=== PATIENT | male | born 1965 | race Caucasian/White ===

== ENCOUNTER → 2019-11-05 07:16 | Outpatient (CLI) | payer OTHER, SELFPAY ==
[2019-11-05 08:06] LABS: Add Manual Diff / Slide Review NO; Basophils Absolute Auto 0 /uL (0-100); Basophils Percent Auto 0.6 % (0-2); Eosinophils Absolute Auto 200 /uL (0-450); Eosinophils Percent Auto 2.1 % (2-4); Hematocrit 50.8 % (41-53); Hemoglobin 17.2 g/dL (13.5-17.5); Lymphocytes Absolute Auto 2200 /uL (1100-4500); Lymphocytes Percent Auto 30.7 % (25-40); Mean Corpuscular HGB Conc 33.9 % (30-36); Mean Corpuscular Hemoglobin 33.1 PG (26-34); Mean Corpuscular Volume 97.6 fL (80-100); Monocytes Absolute Auto 400 /uL (0-900); Neutrophils Absolute Auto 4300 /uL (1500-7000); Neutrophils Percent Auto 60.6 % (50-75); Platelet Count 179 X10^3/uL (150-400); Red Cell Distribution Width 13.4 % (11.6-14.8); White Blood Cell Count 7.1 X10^3/uL (4.5-11.0)
[2019-11-05 08:17] LABS: Alanine Aminotransferase 89 IU/L (<50); Albumin 4.4 g/dL (3.5-5.0); Albumin Globulin Ratio 1.2 (1.0-2.8); Alkaline Phosphatase 67 U/L (38-126); Aspartate Aminotransferase 56 IU/L (17-59); BUN Creatinine Ratio 15.3 (6-22); Bilirubin Total 0.8 mg/dL (0.2-1.3); Blood Urea Nitrogen 15 mg/dL (9-20); Calcium 9.4 mg/dL (8.4-10.2); Carbon Dioxide 30 mmol/L (22-32); Chloride 104 mmol/L (98-107); Cholesterol 199 mg/dL (140-199); Estimated Glomerular Filt Rate > 60.0 mL/min (>60); Globulin 3.8 g/dL (1.7-4.1); Glucose 114 mg/dL (70-100); HDL Cholesterol 41 mg/dL (40-60); HEMOLYSIS < 15 (0-50); Hemoglobin A1C% w Est Avg Glu 6.1 % (4.0-6.0); LDL Cholesterol Calculated 119 mg/dL (<100); Potassium 4.6 mmol/L (3.4-5.1); Sodium 140 mmol/L (137-145); Total Protein 8.2 g/dL (6.3-8.2); Triglycerides 197 mg/dL (35-150)
[2019-11-05 09:38] LABS: TSH w/ Reflex to FT4 2.47 uIU/mL (0.47-4.68)
== END ==
PROVIDERS: Family Provider Family Medicine; PCP Registered Nurse Diabetes Educator; Referring Provider Registered Nurse Diabetes Educator; Visit Provider Registered Nurse Diabetes Educator
DX: Z00.00 Encounter for general adult medical examination without abnormal findings (principal); R73.9 Hyperglycemia, unspecified; R74.8 Abnormal levels of other serum enzymes
CPT/HCPCS: 36415; 80053; 80061; 83036; 84443; 85025

== ENCOUNTER → 2019-11-28 14:02 | Outpatient (CLI) | payer OTHER, SELFPAY ==
--- NOTE | 2019-11-28 | DI.MRI.S_ITS ---
PROCEDURE: MR HEAD/BRAIN WO/W CON INDICATIONS: eliezer media. Decreased hearing in right ear TECHNIQUE: Noncontrast axial T1 spin echo, axial T2 fast spin echo, sagittal and axial FLAIR, coronal T2 fast spin echo, axial gradient echo, axial diffusion and ADC through the brain. In this patient, thin section T2 weighted axial SPACE images were performed. After the administration of contrast, axial and coronal 3D VIBE or T1 spin echo with fat saturation through the brain. COMPARISON: None. FINDINGS: Image quality: Excellent. CSF Spaces: Basal cisterns are patent. No extra-axial fluid collections. Ventricles are normal in size and shape. Brain: No midline shift. No intracranial bleeds or masses. No abnormal intracranial enhancement. The brainstem appears normal. Diffusion-weighted images demonstrate no acute ischemic insults. No chronic ischemic insults. Normal intravascular flow voids are present. In this patient with this given history, scrutiny is given to the cerebellopontine angle cisterns and the internal auditory canals. To limits of this study that is performed without contrast, no masses can be seen within these regions. Skull and face: Calvarial marrow is normal in signal. Orbits appear normal. Sinuses: No significant paranasal sinus abnormality is seen. Scrutiny is given to the mastoids. No abnormal mastoid air cell fluid can be seen on either side. IMPRESSION: No significant MRI abnormality is seen. If it would be helpful for clinical management decision making in this patient with a given history of otitis media and reduced hearing in the right ear, please consider a dedicated temporal bone CT for further evaluation. No masses or abnormal enhancement can be seen. Dictated by: Torito Camargo M.D. on 11/28/2019 at 15:15 Approved by: Torito Camargo M.D. on 11/28/2019 at 15:17
--- NOTE | 2019-11-28 14:04 | DI.US.S_ITS ---
PROCEDURE: US ABDOMEN LIMITED INDICATIONS: RUQ US to eval LFT elevation TECHNIQUE: Real-time focused scanning was performed of the abdomen, with image documentation. COMPARISON: [facility], CT, KIDNEY/ URETER/BLADDER, 06/05/2016, 21:45. FINDINGS: The liver demonstrates normal size. The liver demonstrates generalized moderately increased echogenicity. This decreases ultrasound sensitivity for detection of hepatic masses. A small amount of sludge can be seen within the gallbladder. No findings of gallstones can be seen. The gallbladder wall is not thickened, measuring 3 mm or less. No specific pericholecystic fluid is seen. The sonographic Guzman sign is negative. There is no biliary dilatation, the common bile duct measures 2 mm. The pancreas is not well seen. At the superior pole of the right kidney, there is a prominent simple appearing cyst seen that measures 6.3 x 4.7 x 6.7 cm. IMPRESSION: The liver demonstrates increased echogenicity. This finding is nonspecific, yet it is most commonly attributed to fatty infiltration. A small amount of sludge is seen within the gallbladder, without additional gallbladder abnormality. No biliary dilatation. 6.7 cm simple appearing right renal cyst incidentally noted. Dictated by: Torito Camargo M.D. on 11/28/2019 at 14:52 Approved by: Torito Camargo M.D. on 11/28/2019 at 14:53
== END ==
PROVIDERS: Family Provider Family Medicine; PCP Registered Nurse Diabetes Educator; Referring Provider Otolaryngology Facial Plastic Surgery; Visit Provider Otolaryngology Facial Plastic Surgery
DX: H66.91 Otitis media, unspecified, right ear (principal); H91.91 Unspecified hearing loss, right ear; R42 Dizziness and giddiness; R74.8 Abnormal levels of other serum enzymes; K83.8 Other specified diseases of biliary tract; N28.1 Cyst of kidney, acquired
CPT/HCPCS: 70553; 76705

== ENCOUNTER → 2020-03-23 10:34 | Outpatient (CLI) | payer OTHER, SELFPAY ==
--- NOTE | 2020-03-23 10:44 | DI.RAD.S_ITS ---
PROCEDURE: XR SHOULDER RT MIN 2V INDICATIONS: right shoulder pain TECHNIQUE: 3 views of the shoulder were acquired. COMPARISON: None. FINDINGS: Bones: No fractures or dislocations. No suspicious bony lesions. Visualized ribs appear intact. Soft tissues: No suspicious soft tissue calcifications. IMPRESSION: Mild AC joint osteoarthritis, no trauma found. Dictated by: Louie Couch M.D. on 03/23/2020 at 12:26 Approved by: Louie Couch M.D. on 03/23/2020 at 12:27
--- NOTE | 2020-03-23 10:44 | DI.RAD.S_ITS ---
PROCEDURE: XR RIBS RT MIN 3V W CXR 1V INDICATIONS: right shoulder pain TECHNIQUE: 2 views of the right ribs were acquired, along with a single view chest. COMPARISON: None. FINDINGS: Surgical changes and devices: None. Bones and chest wall: No fractures or dislocations. No suspicious bony lesions. Overlying soft tissues appear unremarkable. Lungs and pleura: No pleural effusions or pneumothorax. Lungs appear clear. Mediastinum: Mediastinal contours appear normal. Heart size is normal. IMPRESSION: A fractures not seen, a pneumothorax or pleural effusion is not found. Dictated by: Louie Couch M.D. on 03/23/2020 at 12:26 Approved by: Louie Couch M.D. on 03/23/2020 at 12:26
[2020-03-23 11:37] LABS: Alanine Aminotransferase 63 IU/L (<50); Albumin 4.1 g/dL (3.5-5.0); Albumin Globulin Ratio 1.1 (1.0-2.8); Alkaline Phosphatase 64 U/L (38-126); Aspartate Aminotransferase 43 IU/L (17-59); BUN Creatinine Ratio 15.9 (6-22); Bilirubin Total 0.6 mg/dL (0.2-1.3); Blood Urea Nitrogen 14 mg/dL (9-20); Carbon Dioxide 33 mmol/L (22-32); Chloride 104 mmol/L (98-107); Estimated Glomerular Filt Rate > 60.0 mL/min (>60); Globulin 3.6 g/dL (1.7-4.1); Glucose 82 mg/dL (70-100); HEMOLYSIS < 15 (0-50); Potassium 4.1 mmol/L (3.4-5.1); Sodium 140 mmol/L (137-145); Total Protein 7.7 g/dL (6.3-8.2)
== END ==
PROVIDERS: Family Provider Family Medicine; PCP Registered Nurse Diabetes Educator; Referring Provider Registered Nurse; Visit Provider Registered Nurse
DX: R74.8 Abnormal levels of other serum enzymes (principal); M25.511 Pain in right shoulder; R07.81 Pleurodynia
CPT/HCPCS: 36415; 71101; 73030; 80053

== ENCOUNTER → 2020-04-13 07:00 | Outpatient (CLI) | payer OTHER, SELFPAY ==
--- NOTE | 2020-04-13 07:01 | DI.US.S_ITS ---
PROCEDURE: US ABDOMEN LIMITED INDICATIONS: DIFFUSE SOFT TISSUE INFERIOR TO RIGHT LATERAL RIBCAGE TECHNIQUE: Real-time focused scanning was performed of the abdomen, with image documentation. COMPARISON: [facility], , US ABDOMEN LIMITED, 11/28/2019, 15:22. FINDINGS: No sonographically visible soft tissue fluid collection or mass. IMPRESSION: No sonographic abnormality. If there is continued clinical concern for mass, consider soft tissue MRI. Dictated by: Eleazar YI Interpreted: Isaías Harper MD on 04/13/2020 at 14:52 Approved by: Isaías Harper M.D. on 04/13/2020 at 16:13
== END ==
PROVIDERS: Family Provider Family Medicine; PCP Registered Nurse Diabetes Educator; Referring Provider Registered Nurse Diabetes Educator; Visit Provider Registered Nurse Diabetes Educator
DX: R52 Pain, unspecified (principal); M79.89 Other specified soft tissue disorders
CPT/HCPCS: 76705

== ENCOUNTER → 2020-11-18 07:04 | Outpatient (CLI) | payer OTHER, SELFPAY ==
[2020-11-18 08:28] LABS: Hematocrit 50.5 % (41-53); Hemoglobin 16.6 g/dL (13.5-17.5); Mean Corpuscular HGB Conc 32.9 % (30-36); Mean Corpuscular Hemoglobin 32.2 PG (26-34); Mean Corpuscular Volume 97.8 fL (80-100); Platelet Count 190 X10^3/uL (150-400); Red Blood Cell Count 5.17 X10^6/uL (4.5-5.9); Red Cell Distribution Width 13.4 % (11.6-14.8); White Blood Cell Count 6.6 X10^3/uL (4.5-11.0)
[2020-11-18 08:43] LABS: Hemoglobin A1C% w Est Avg Glu 6.1 % (4.0-6.0)
[2020-11-18 09:03] LABS: Alanine Aminotransferase 81 IU/L (<50); Albumin 4.2 g/dL (3.5-5.0); Albumin Globulin Ratio 1.3 (1.0-2.8); Alkaline Phosphatase 59 U/L (38-126); Aspartate Aminotransferase 54 IU/L (17-59); BUN Creatinine Ratio 13.6 (6-22); Bilirubin Total 0.6 mg/dL (0.2-1.3); Blood Urea Nitrogen 12 mg/dL (9-20); Calcium 9.3 mg/dL (8.4-10.2); Carbon Dioxide 30 mmol/L (22-32); Chloride 101 mmol/L (98-107); Cholesterol 194 mg/dL (140-199); Estimated Glomerular Filt Rate > 60.0 mL/min (>60); Globulin 3.2 g/dL (1.7-4.1); Glucose 114 mg/dL (70-100); HDL Cholesterol 46 mg/dL (40-60); HEMOLYSIS < 15 (0-50); LDL Cholesterol Calculated 121 mg/dL (<100); Potassium 4.6 mmol/L (3.4-5.1); Sodium 140 mmol/L (137-145); Total Protein 7.4 g/dL (6.3-8.2); Triglycerides 135 mg/dL (35-150)
[2020-11-18 09:04] LABS: HEMOLYSIS < 15 (0-50); Iron 130 ug/dL (49-181)
[2020-11-18 09:14] LABS: Percent Iron Saturation 41 % (20-50); Total Iron Binding Capacity 319 ug/dL (261-462); Transferrin 241 mg/dL (206-381)
[2020-11-18 09:22] LABS: TSH w/ Reflex to FT4 2.23 uIU/mL (0.47-4.68)
[2020-11-18 09:25] LABS: Ferritin 84 ng/mL (18-464)
[2020-11-18 18:07] LABS: Hepatitis B Surface Antigen NEGATIVE s/c (NEGATIVE)
[2020-11-18 18:27] LABS: Hep C Virus Ab w/Reflex Quant NEGATIVE s/c (NEGATIVE)
[2020-11-19 04:08] LABS: Hepatitis A Ab Total Negative (Negative)
[2020-11-19 06:54] LABS: Hepatitis B Core AB w/Reflex Negative (Negative)
== END ==
PROVIDERS: Family Provider Family Medicine; PCP Registered Nurse Diabetes Educator; Referring Provider Registered Nurse Diabetes Educator; Visit Provider Registered Nurse Diabetes Educator
DX: E78.5 Hyperlipidemia, unspecified (principal); K76.0 Fatty (change of) liver, not elsewhere classified; R73.01 Impaired fasting glucose; R74.8 Abnormal levels of other serum enzymes
CPT/HCPCS: 36415; 80053; 80061; 82728; 83036; 83540; 83550; 84443; 85027; 86704; 86708; 86803; 87340

== ENCOUNTER → 2020-12-02 06:29 | Outpatient (CLI) | payer OTHER, SELFPAY ==
--- NOTE | 2020-12-02 06:31 | DI.MRI.S_ITS ---
PROCEDURE: MR ABDOMEN WO/W CON INDICATIONS: pain right side of body TECHNIQUE: Axial 2-D FLASH in- and for-[id number], axial breath-hold T2 FSE, axial STIR FSE. Optional contrast may be given, followed by axial 2-D FLASH with fat saturation acquired over the lesion of concern. COMPARISON: [facility], CT, IVP (ABD & PEL WWO CONTRAST), 01/13/2015, 8:13. [facility], CT, KIDNEY/ URETER/BLADDER, 06/05/2016, 21:45. [facility], CR, XR RIBS RT MIN 3V W CXR 1V, 03/23/2020, 10:47. [facility], US, US ABDOMEN LIMITED, 04/13/2020, 7:19. FINDINGS: Image quality: There are motion artifacts. Region of interest: No mass is identified. Normal adipose tissue is seen deep to marker on the chest wall. Eventration of the right hemidiaphragm. There is a 4.7 x 6.4 cm cyst in the mid zone of the right kidney. Small cortical cysts are noted in right kidney. No hydronephrosis. Liver is at the upper limits normal in size. There is hepatic steatosis. Gallbladder is normal. Bones: Nearby osseous structures demonstrate normal overall marrow signal. Mild enlargement of the right 9th rib head. No definitive rib fractures. IMPRESSION: 1. No mass is identified in the area of concern. 2. Multiple right renal cysts with the largest cyst measuring 4.7 x 6.4 cm in the mid zone. 3. Hepatic steatosis. Dictated by: Marvin Jenkins M.D. on 12/02/2020 at 10:16 Approved by: Marvin Jenkins M.D. on 12/02/2020 at 10:29
== END ==
PROVIDERS: Family Provider Family Medicine; PCP Registered Nurse Diabetes Educator; Referring Provider Registered Nurse Diabetes Educator; Visit Provider Registered Nurse Diabetes Educator
DX: R52 Pain, unspecified (principal); N20.0 Calculus of kidney; K76.0 Fatty (change of) liver, not elsewhere classified
CPT/HCPCS: 74183

== ENCOUNTER → 2020-12-22 14:26 | Outpatient (CLI) | payer OTHER, SELFPAY ==
[2020-12-23 08:06] LABS: Alpha 1 Anti Trypsin 111 mg/dL (101-187); Ceruloplasmin 17.1 mg/dL (16.0-31.0)
[2020-12-24 14:01] LABS: ANA Screen, IFA Negative (.)
[2020-12-25 13:22] LABS: Smooth Muscle Antibody 7 Units (0-19)
== END ==
PROVIDERS: Family Provider Family Medicine; PCP Registered Nurse Diabetes Educator; Referring Provider Internal Medicine Gastroenterology; Visit Provider Internal Medicine Gastroenterology
DX: R79.89 Other specified abnormal findings of blood chemistry (principal); R73.01 Impaired fasting glucose; E78.5 Hyperlipidemia, unspecified; K76.0 Fatty (change of) liver, not elsewhere classified; R74.8 Abnormal levels of other serum enzymes
CPT/HCPCS: 36415; 80053; 80061; 82103; 82390; 83036; 83516; 84443; 85027; 86038

== ENCOUNTER → 2021-10-06 07:12 | Outpatient (CLI) | payer OTHER, SELFPAY ==
--- NOTE | 2021-10-06 07:12 | DI.US.S_ITS ---
PROCEDURE: US RENAL COMPLETE INDICATIONS: Right renal cyst surveillance TECHNIQUE: Real-time scanning was performed of the kidneys and bladder, with image documentation. COMPARISON: [facility], MR, MR ABDOMEN WO/W CON, 12/02/2020, 7:18. [facility], US, US ABDOMEN LIMITED, 04/13/2020, 7:19. CT, KIDNEY/ URETER/BLADDER, 06/05/2016, 21:45. FINDINGS: Kidneys: Kidneys are normal in size. Right kidney measures 13.7 cm long; left kidney measures 13.4 cm long. Right renal cortical thickness is 2.3 cm; left renal cortical thickness is 2.2 cm. Renal cortical echotexture is normal. No hydronephrosis or nephrolithiasis. No suspicious solid mass lesions. The largest right renal cyst is present measuring 5.4 x 4.8 x 6.0 cm. This is compared to 6.4 x 4.7 cm. Bladder: Pre-void bladder volume is 163 mL. Post-void residual not measured as patient was unable to void. Pre-void images demonstrate no intraluminal masses or stones. On pre-void images, bilateral ureteral jets are noted with color Doppler interrogation. (Of note, ureteral jets may not be detectable in up to 25% of cases due to insufficient differences in specific gravity between ureteral and bladder urine). Miscellaneous: No free pelvic fluid. IMPRESSION: Slightly less prominent appearance of right renal cyst. Dictated by: Jade Villasenor M.D. on 10/06/2021 at 16:26 Approved by: Jade Villasenor M.D. on 10/06/2021 at 16:28
== END ==
PROVIDERS: Family Provider Family Medicine; PCP Registered Nurse Diabetes Educator; Referring Provider Urology; Visit Provider Urology
DX: N28.1 Cyst of kidney, acquired (principal)
CPT/HCPCS: 76770

== ENCOUNTER → 2021-11-04 07:02 | Outpatient (CLI) | payer OTHER, SELFPAY ==
[2021-11-04 09:06] LABS: Add Manual Diff / Slide Review NO; Basophils Absolute Auto 0 /uL (0-100); Basophils Percent Auto 0.5 % (0-2); Eosinophils Absolute Auto 100 /uL (0-450); Eosinophils Percent Auto 1.8 % (2-4); Hematocrit 47.1 % (41-53); Hemoglobin 16.1 g/dL (13.5-17.5); Lymphocytes Absolute Auto 1900 /uL (1100-4500); Lymphocytes Percent Auto 31.1 % (25-40); Mean Corpuscular Hemoglobin 32.7 PG (26-34); Monocytes Absolute Auto 300 /uL (0-900); Monocytes Percent Auto 5.1 % (3-14); Neutrophils Absolute Auto 3800 /uL (1500-7000); Neutrophils Percent Auto 61.5 % (50-75); Platelet Count 164 X10^3/uL (150-400); Red Blood Cell Count 4.91 X10^6/uL (4.5-5.9); Red Cell Distribution Width 13.8 % (11.6-14.8); White Blood Cell Count 6.3 X10^3/uL (4.5-11.0)
[2021-11-04 09:35] LABS: Hemoglobin A1C% w Est Avg Glu 6.2 % (4.0-6.0)
[2021-11-04 10:21] LABS: Alanine Aminotransferase 81 IU/L (<50); Albumin 4.3 g/dL (3.5-5.0); Albumin Globulin Ratio 1.3 (1.0-2.8); Alkaline Phosphatase 58 U/L (38-126); Aspartate Aminotransferase 47 IU/L (17-59); BUN Creatinine Ratio 15.9 (6-22); Bilirubin Total 0.5 mg/dL (0.2-1.3); Blood Urea Nitrogen 17 mg/dL (9-20); Calcium 9.1 mg/dL (8.4-10.2); Carbon Dioxide 28 mmol/L (22-32); Chloride 103 mmol/L (98-107); Cholesterol 206 mg/dL (140-199); Estimated Glomerular Filt Rate > 60 mL/min (>60); Globulin 3.4 g/dL (1.7-4.1); Glucose 126 mg/dL (70-100); HDL Cholesterol 42 mg/dL (40-60); HEMOLYSIS < 15 (0-50); LDL Cholesterol Calculated 137 mg/dL (<100); Potassium 5.1 mmol/L (3.4-5.1); Sodium 140 mmol/L (137-145); Total Protein 7.7 g/dL (6.3-8.2); Triglycerides 133 mg/dL (35-150)
== END ==
PROVIDERS: Family Provider Family Medicine; PCP Registered Nurse Diabetes Educator; Referring Provider Registered Nurse Diabetes Educator; Visit Provider Registered Nurse Diabetes Educator
DX: E78.5 Hyperlipidemia, unspecified (principal); K21.9 Gastro-esophageal reflux disease without esophagitis; K76.0 Fatty (change of) liver, not elsewhere classified; M54.41 Lumbago with sciatica, right side; R73.01 Impaired fasting glucose; R74.8 Abnormal levels of other serum enzymes; N28.1 Cyst of kidney, acquired; R31.21 Asymptomatic microscopic hematuria; R10.9 Unspecified abdominal pain; G89.29 Other chronic pain; Z87.442 Personal history of urinary calculi
CPT/HCPCS: 36415; 80053; 80061; 81002; 83036; 85025; 99214

== ENCOUNTER → 2021-11-18 15:00 | Outpatient (CLI) | payer OTHER, SELFPAY ==
--- NOTE | 2021-11-18 15:01 | DI.CT.S_ITS ---
PROCEDURE: CT ABDOMEN PELVIS WO/W CON INDICATIONS: Asymptomatic microscopic hematuria right flank pain TECHNIQUE: After the administration of oral contrast, 5 mm thick sections acquired from the diaphragms to the iliac crests. After the administration of intravenous contrast, 5 mm thick sections acquired from the diaphragms to the symphysis. 5 mm thick coronal and sagittal reformats were acquired. For radiation dose reduction, the following was used: automated exposure control, adjustment of mA and/or kV according to patient size. COMPARISON: [facility], , MR ABDOMEN WO/W CON, 12/02/2020, 7:18. FINDINGS: Image quality: Excellent. ABDOMEN: Image quality: Excellent Lower chest: Scattered scarring/atelectasis. Moderate hiatal hernia. Coronary artery calcifications. Solid organs: Suspected steatosis gallbladder is unremarkable. No biliary ductal dilation. Pancreas is unremarkable. Spleen is nonenlarged. No adrenal nodules. Bosniak 1 and 2 renal lesions are present, for which no dedicated followup is necessary per 2019 proposed guidelines. No hydronephrosis. No ureter filling defects. No renal calculi. Stable right dominant renal cyst measuring 5.9 cm compared to 2020. No bladder stone or measurable mass is identified. Vessels and lymph nodes: No abdominal aortic aneurysm. The main portal vein is patent. No lymph nodes enlarged by size criteria. Bowel and peritoneum: No pathologic ascites. No bowel obstruction. Moderate hiatal hernia. Body wall: Small fat containing umbilical hernia. Pelvis: As above. Prostate is not well evaluated, unremarkable. Bones: No acute or suspicious osseous abnormality. There is scattered degenerative changes. IMPRESSION: Right renal cyst again seen, stable. Bosniak 1 and 2 renal lesions are present, for which no dedicated followup is necessary per 2019 proposed guidelines. No definite upper tract disease. No hydronephrosis. Lower tract disease could be better evaluated with cystoscopy. Other incidental findings above. Dictated by: Naun Lawler M.D. on 11/18/2021 at 16:50 Approved by: Naun Lawler M.D. on 11/18/2021 at 16:56
== END ==
PROVIDERS: Family Provider Family Medicine; PCP Registered Nurse Diabetes Educator; Referring Provider Urology; Visit Provider Urology
DX: R31.21 Asymptomatic microscopic hematuria (principal); R10.9 Unspecified abdominal pain; N28.1 Cyst of kidney, acquired; Z87.442 Personal history of urinary calculi
CPT/HCPCS: 74178; Q9967

== ENCOUNTER → 2022-02-15 09:05 | Outpatient (CLI) | payer OTHER, SELFPAY ==
[2022-02-15 10:40] LABS: Influenza A - CEPHEID Flu A NEGATIVE (NEGATIVE); Influenza B - CEPHEID Flu B NEGATIVE (NEGATIVE); Respiratory Syncytial Virus Negative (Negative)
[2022-02-15 10:41] LABS: COVID-19 CEPHEID 4-PLEX PCR POSITIVE (Negative)
== END ==
PROVIDERS: Family Provider Family Medicine; PCP Registered Nurse Diabetes Educator; Visit Provider Nurse Practitioner Family
DX: U07.1 COVID-19 (principal); R05.1 Acute cough; Z20.822 Contact with and (suspected) exposure to COVID-19
CPT/HCPCS: 0241U

== ENCOUNTER → 2022-05-24 11:39 | Outpatient (CLI) | payer OTHER, SELFPAY ==
--- NOTE | 2022-05-24 11:41 | DI.US.S_ITS ---
PROCEDURE: US RENAL COMPLETE INDICATIONS: Right renal cyst TECHNIQUE: Real-time scanning was performed of the kidneys and bladder, with image documentation. COMPARISON: [facility], CT, CT ABDOMEN PELVIS WO/W CON, 11/18/2021, 15:40. [facility], US, US RENAL COMPLETE, 10/06/2021, 7:16. FINDINGS: Kidneys: Kidneys are normal in size. Right kidney measures 12.3 cm long; left kidney measures 13.1 cm long. Right renal cortical thickness is 0.8 cm; left renal cortical thickness is 1.1 cm. Renal cortical echotexture is normal. No hydronephrosis. No suspicious solid mass lesions. There is a simple cyst at the superior pole of the right kidney that measures up to 7.4 cm, which previously measured up to 6 cm. At the superior pole of the left kidney, there is a 5 mm nonobstructing kidney stone seen. Bladder: Pre-void bladder volume is 266 mL. Post-void residual is 10 mL. Pre-void images demonstrate no intraluminal masses or stones. On pre-void images, both ureteral jets are noted with color Doppler interrogation. (Of note, ureteral jets may not be detectable in up to 25% of cases due to insufficient differences in specific gravity between ureteral and bladder urine). Miscellaneous: No free pelvic fluid. IMPRESSION: There is a 7.4 cm simple appearing right renal cyst, which has increased in size compared to the prior. A 5 mm nonobstructing left-sided kidney stone is seen. Small postvoid residual, 10 cc. Dictated by: Torito Camargo M.D. on 05/24/2022 at 11:58 Approved by: Torito Camargo M.D. on 05/24/2022 at 12:00
== END ==
PROVIDERS: Family Provider Family Medicine; PCP Registered Nurse Diabetes Educator; Referring Provider Urology; Visit Provider Urology
DX: N28.1 Cyst of kidney, acquired (principal); N20.0 Calculus of kidney
CPT/HCPCS: 76770

== ENCOUNTER → 2022-07-15 07:36 | Outpatient (CLI) | payer OTHER, SELFPAY ==
[2022-07-15 08:18] LABS: Alanine Aminotransferase 84 IU/L (<50); Albumin 4.2 g/dL (3.5-5.0); Albumin Globulin Ratio 1.2 (1.0-2.8); Alkaline Phosphatase 54 U/L (38-126); Aspartate Aminotransferase 56 IU/L (17-59); BUN Creatinine Ratio 16.3 (6-22); Bilirubin Total 0.9 mg/dL (0.2-1.3); Blood Urea Nitrogen 15 mg/dL (9-20); Calcium 8.9 mg/dL (8.4-10.2); Carbon Dioxide 29 mmol/L (22-32); Chloride 103 mmol/L (98-107); Cholesterol 201 mg/dL (140-199); Estimated Glomerular Filt Rate > 60 mL/min (>60); Globulin 3.5 g/dL (1.7-4.1); Glucose 121 mg/dL (70-100); HDL Cholesterol 39 mg/dL (40-60); HEMOLYSIS 25 (0-50); LDL Cholesterol Calculated 140 mg/dL (<100); Potassium 4.6 mmol/L (3.4-5.1); Sodium 138 mmol/L (137-145); Total Protein 7.7 g/dL (6.3-8.2); Triglycerides 111 mg/dL (35-150)
[2022-07-15 08:48] LABS: Prostate Specific Antigen Scrn 0.715 ng/mL (0.1-4.0)
[2022-07-16 03:36] LABS: x Labcorp Estim. Avg Glu (eAG) 137 mg/dL (.); x Labcorp Hemoglobin A1c 6.4 % (4.8-5.6)
== END ==
PROVIDERS: Family Provider Family Medicine; PCP Registered Nurse Diabetes Educator; Referring Provider Registered Nurse Diabetes Educator; Visit Provider Registered Nurse Diabetes Educator
DX: Z12.5 Encounter for screening for malignant neoplasm of prostate (principal); N40.0 Benign prostatic hyperplasia without lower urinary tract symptoms; E78.5 Hyperlipidemia, unspecified; K76.0 Fatty (change of) liver, not elsewhere classified; R73.01 Impaired fasting glucose; R10.13 Epigastric pain
CPT/HCPCS: 36415; 80053; 80061; 83036; 99213; G0103

== ENCOUNTER 2022-08-22 10:49 | Day surgery (SDC) | payer OTHER, SELFPAY ==
--- NOTE | 2022-08-22 | PATH_ITS ---
[facility] Accession Number: [id number] No. of containers..02 Tissue . 01 Material submitted: . PART A: body - GASTRIC PART B: sigmoid colon - SIGMOID POLYP @ 40CM (HOT SNARE) . 01 Clinical history: . A) FOR H.PYORI 08/26/2022 BIOPSY SITE VERIFIED BY MARIA GUADALUPE (Troy/Rachid) Lul JAUREGUI . 01 Diagnosis: A. Gastric, Biopsy: Gastric mucosa with mild reactive gastropathy alterations. No Helicobacter pylori organisms identified on immunohistochemical evaluation. No intestinal metaplasia, dysplasia, or malignancy identified. . B. Sigmoid Colon Polyp at 40 cm, Biopsy: Tubulovillous adenoma. No high-grade dysplasia or malignancy. MRV 08/29/2022 1406 Local . 01 Electronically signed: . Olya Brown MD, Pathologist NPI- [id number] . 01 Gross description: . A. Received in formalin labeled with the patient's name, and BX for H. pylori consists of two mast soft tissue fragments ranging from 0.1 to 0.2 cm in greatest dimension. Submitted entirely in cassette A1. B. Received in formalin labeled with the patient's name, and sigmoid polyp at 40 cm consists of a single mast soft tissue fragment measuring 1.1 x 0.5 x 0.5 cm. The margin is inked blue. The specimen is bisected and submitted entirely in cassette B1. ([id number]) /MRV 08/25/2022 1844 Local . 01 Microscopic: . A. An immunohistochemical stain was performed to evaluate for Helicobacter organisms and is negative. The control stain showed appropriate reactivity. . * This test was developed and its performance characteristics determined by [facility]. It has not been cleared or approved by the U.S. Food and Drug Administration. The FDA has determined that such clearance or approval is not necessary. This test is used for clinical purposes. It should not be regarded as investigational or for research. . 01 Pathologist provided ICD-10: K29.60, D12.5 . 01 CPT . 324992, 906501, O86039 Specimen Comment: A courtesy copy of this report has been sent to [phone] Performed at: 01 [facility] [address] [place] [address] [id number] MD Tono Kyle MD Phone: [phone]
[2022-08-22 11:05] VITALS: BP 135/80; PULSE 66; RESP 16; TEMP 36.2; O2SAT 96; BMI 36.6
[2022-08-22] MEDS: LACTATED RINGERS 1,000 ML 125 ML IV (11:10)
--- NOTE | 2022-08-22 11:42 | PM.HP.1 ---
History of Present Illness History of Present Illness Date Patient Seen: 08/22/22 Time Patient Seen: 11:43 Chief complaint: EGD & Colonoscopy w/poss bx's Narrative: Severe reflux breaking through a once a day PPI. This is his 1st colonoscopy for colon cancer screening, does not recall family history for colon cancer. He has bright red blood per rectum when he has a hard stool consistent with hemorrhoids [facility] Medical History Asymptomatic microscopic hematuria Benign prostatic hyperplasia Calcaneal spur, right (~11/2013) Chronic right-sided low back pain with right-sided sciatica (12/09/16) Dyslipidemia Fatty liver Foraminal stenosis of lumbar region (12/09/16) Foraminal stenosis of lumbar region Gastroesophageal reflux disease without esophagitis (04/16/15) GERD (gastroesophageal reflux disease) History of frequent ear infections in childhood Impaired fasting blood sugar Kidney stones (02/2015) Liver enzyme elevation Low back pain (11/2016) Lower urinary tract symptoms Renal cyst, acquired, right Surgical History History of appendectomy Hx of Achilles tendon repair (11/2013) Hx of tonsillectomy Family History Father Diabetes mellitus Heart disease Mother No problems noted. Social History marital status: household members: spouse lives independently: Yes occupational status: employed Smoking Status: Never smoker alcohol intake: current substance use type: does not use Meds Home Medications and Allergies Home Medications Medication Instructions Recorded Confirmed Type esomeprazole magnesium 20 mg 20 mg PO DAILY 06/30/22 08/22/22 History capsule,delayed release (Nexium 24HR) Allergies Allergy/AdvReac Type Severity Reaction Status Date / Time BEE STINGS Allergy Unknown Uncoded 07/15/22 09:22 crockett cameron Allergy Unknown Uncoded 07/15/22 09:22 Review of Systems Review of Systems ROS: Yes All systems reviewed with the patient and are negative except as otherwise documented Exam Vital Signs (past 8 hours): - 08/22/22 11:05 Temperature 97.1 F L Pulse Rate 66 Respiratory Rate 16 Blood Pressure 135/80 Pulse Oximetry 96 Oxygen Delivery Method Room Air Oxygen Delivery Method Room Air Const General: cooperative and comfortable Nutritional Appearance: well nourished [facility] Head: normocephalic and atraumatic Eyes General: appearance normal, both eyes and all related structures Sclera: sclerae normal Neck Neck: trachea midline Resp Effort & Inspection: normal respiratory effort and able to speak in complete sentences Cardio Rate: regular rate Rhythm: regular rhythm GI Palpation: soft Skin General: elasticity normal and turgor normal Neuro General: patient alert, patient awake and patient oriented x3 Psych Appearance: grossly normal Mental Status: mental status grossly normal Judgment: judgment good Assessment & Plan Assessment & Plan narrative: Reflux Colon cancer screening EGD and colonoscopy under MAC Time Spent With Patient Time with patient: less than 30 minutes
--- NOTE | 2022-08-22 12:26 | PM.OP.EC ---
Operative Date/Time/Diagnoses Date of procedure: 08/22/22 Time of procedure: 12:26 Pre-op diagnosis: Reflux and colon cancers screening Post-op diagnosis: same Procedure & Clinicians Study performed: EGD with cold forceps biopsy and colonoscopy with hot snare polypectomy Same procedure as scheduled: Yes Indications: Reflux and colon cancer screening Surgeon: Priyanka Perez Procedure Notes Procedure in detail: Preop diagnosis: Reflux and colon cancer screening Postop diagnosis: Same Operative procedure: EGD with cold forceps biopsy, colonoscopy with hot snare polypectomy. Both under MAC Surgeon: Chelsie Perez MD Findings: Esophagus within normal limits. Moderate size hiatal hernia not well demonstrated on the photos. Gastric polyps in the antral area with gastritis. And mild duodenitis. Biopsies taken with the cold forceps Colonoscopy demonstrated no significant diverticulosis. One polyp in the distal sigmoid on a stalk polyp approximately 1.5 cm in size. Procedure: Patient placed in a supine position. Anesthetic was provided. Scope was inserted into the esophagus and advanced into the stomach. Identified the pylorus and intubate into the duodenum. Insufflation extraction scope including retroflex had the above findings. Forceps biopsies were taken of the antral mucosa for H pylori. Patient then was turned into a lateral position. Rectal exam performed showing normal tone no masses. Colonoscope inserted into the rectum and advanced to ileocecal valve with minimal difficulty. Insufflation extraction of the scope and the above findings. Retroflex was included. Impression: Moderate size hiatal hernia. Gastritis and demonstration of gastric polyps consistent with hyperplastic polyps tells me his once a day Nexium is insufficient. Esophagus however was in normal condition. He mentioned rectal bleeding preoperatively and I believe this with stem from the polyp we took at approximately 40 cm on a lengthy stalk. Await pathology. Plan: Follow up with primary care for results of H pylori to determine if treatment is necessary. Recommend until that time twice a day Nexium. He will be on a 5 year recall plan for colonoscopy. And given the size of the polyp we will follow closely on pathology determine if any pre cancer exist. Findings: gastritis, hiatal hernia and polyp (40 cm distal sigmoid polyp 1.5 cm on a stalk) Specimen(s): other (Cold forceps antral mucosa for H pylori, distal sigmoid polyp) Complications: none Post-procedure Recommendations: Colonscopy in 5 years Plan for aftercare: Recommend twice a day Nexium until results of his H pylori return. Follow up: weeks Disposition: PACU
[2022-08-22 12:30] VITALS: BP 125/69; PULSE 62; RESP 14; TEMP 36.2; O2SAT 93
[2022-08-22 12:35] VITALS: BP 128/82; PULSE 50; RESP 15; O2SAT 96
[2022-08-22 12:40] VITALS: BP 125/76; PULSE 55; RESP 15; O2SAT 94
[2022-08-22 12:46] VITALS: BP 124/79; PULSE 67; RESP 15; O2SAT 94
[2022-08-22 12:50] VITALS: BP 138/87; PULSE 60; RESP 16; TEMP 36.4; O2SAT 95
== END 2022-08-22 13:08 | disposition home or self-care (01) ==
PROVIDERS: Family Provider Family Medicine; PCP Registered Nurse Diabetes Educator; Referring Provider Surgery; Visit Provider Surgery
PROC: 0DJD8ZZ Inspection of Lower Intestinal Tract, Via Natural or Artificial Opening Endoscopic (ICD-10-PCS; CPT 45378; principal; 2022-08-22 11:45)
PROC: 0DJ08ZZ Inspection of Upper Intestinal Tract, Via Natural or Artificial Opening Endoscopic (ICD-10-PCS; CPT 43235; 2022-08-22 11:45)
DX: Z12.11 Encounter for screening for malignant neoplasm of colon (principal); R10.13 Epigastric pain; K21.9 Gastro-esophageal reflux disease without esophagitis; K44.9 Diaphragmatic hernia without obstruction or gangrene; A04.8 Other specified bacterial intestinal infections
CPT/HCPCS: 45385; 43239; J2704

== ENCOUNTER → 2022-11-19 08:28 | Outpatient (CLI) | payer OTHER, SELFPAY ==
[2022-11-19 10:38] LABS: Alanine Aminotransferase 71 IU/L (<50); Albumin 4.1 g/dL (3.5-5.0); Albumin Globulin Ratio 1.2 (1.0-2.8); Alkaline Phosphatase 56 U/L (38-126); Aspartate Aminotransferase 47 IU/L (17-59); Bilirubin Total 0.7 mg/dL (0.2-1.3); Bilirubin Unconjugated 0.6 mg/dL (0.0-1.1); Cholesterol 205 mg/dL (140-199); Globulin 3.4 g/dL (1.7-4.1); Glucose 121 mg/dL (70-100); HDL Cholesterol 42 mg/dL (40-60); HEMOLYSIS < 15 (0-50); LDL Cholesterol Calculated 136 mg/dL (<100); Total Protein 7.5 g/dL (6.3-8.2); Triglycerides 136 mg/dL (35-150)
[2022-11-19 15:45] LABS: Hemoglobin A1C% w Est Avg Glu 6.2 % (4.0-6.0)
== END ==
PROVIDERS: Family Provider Family Medicine; PCP Registered Nurse Diabetes Educator; Referring Provider Registered Nurse Diabetes Educator; Visit Provider Registered Nurse Diabetes Educator
DX: R73.01 Impaired fasting glucose (principal); E78.5 Hyperlipidemia, unspecified; K76.0 Fatty (change of) liver, not elsewhere classified; R74.8 Abnormal levels of other serum enzymes
CPT/HCPCS: 36415; 80061; 80076; 82947; 83036

== ENCOUNTER → 2022-11-21 15:16 | Outpatient (CLI) | payer OTHER, SELFPAY ==
--- NOTE | 2022-11-21 15:16 | DI.CT.S_ITS ---
PROCEDURE: CT ABDOMEN PELVIS WO CON INDICATIONS: Kidney stones/renal cysts TECHNIQUE: Noncontrast 5 mm thick sections acquired from the diaphragms to the symphysis. 5 mm coronal and sagittal reformats were then performed. For radiation dose reduction, the following was used: automated exposure control, adjustment of mA and/or kV according to patient size. COMPARISON: [facility], CT, CT ABDOMEN PELVIS WO/W CON, 11/18/2021, 15:40. FINDINGS: Image quality: Excellent. Lung bases: Lung bases are clear. Heart size is normal. Solid organs: Liver: The liver has no mass or intrahepatic biliary ductal dilatation. The portal vein and hepatic veins are patent. Biliary: The gallbladder has no gallstones, pericholecystic fluid, gallbladder wall thickening, or surrounding inflammatory change. Pancreas: The pancreas has no mass or ductal dilatation. There is no surrounding inflammation. Spleen: Normal size. There are no masses. Adrenals: No hypertrophy or nodules. Kidneys: No obstructive calculus or hydronephrosis. The right kidney has a 5.6 cm cyst. No solid mass. Peritoneum and bowel: The distal esophagus and stomach are normal. The small bowel has a normal caliber and appearance. The terminal ileum is normal. The large bowel has a normal caliber and appearance. The appendix is normal. No free fluid or air. Nodes and vessels: No retroperitoneal or mesenteric adenopathy by size criteria. The aorta has atherosclerosis with no aneurysmal dilatation. Miscellaneous: No abdominal wall mass or hernia. Rectus diastasis is present. PELVIS: Genitourinary: The bladder has no wall thickening or mass. No bladder calcifications. Bones: Multilevel degenerative changes. There is fusion of the posterior spinous processes suspicious for ankylosing spondylitis. No vertebral body compression fractures. IMPRESSION: 1. No nephroureterolithiasis. 2. Stable simple right renal cyst. Dictated by: Earnest Santos M.D. on 11/21/2022 at 15:43 Approved by: Earnest Santos M.D. on 11/21/2022 at 15:49
== END ==
PROVIDERS: Family Provider Family Medicine; PCP Registered Nurse Diabetes Educator; Referring Provider Urology; Visit Provider Urology
DX: N20.0 Calculus of kidney (principal); N28.1 Cyst of kidney, acquired
CPT/HCPCS: 74176

== ENCOUNTER → 2022-11-25 14:27 | Outpatient (CLI) | payer OTHER, SELFPAY | PROVIDERS: Family Provider Family Medicine; PCP Registered Nurse Diabetes Educator; Visit Provider Urology | DX: N20.0 Calculus of kidney (principal); R39.9 Unspecified symptoms and signs involving the genitourinary system; R31.21 Asymptomatic microscopic hematuria; N28.1 Cyst of kidney, acquired; N40.1 Benign prostatic hyperplasia with lower urinary tract symptoms; R39.11 Hesitancy of micturition; R39.14 Feeling of incomplete bladder emptying; Z87.442 Personal history of urinary calculi | CPT/HCPCS: 51798; 81002; 87086; 99214 ==

== ENCOUNTER → 2022-12-03 09:12 | Outpatient (CLI) | payer OTHER, SELFPAY ==
--- NOTE | 2022-12-03 09:14 | DI.MRI.S_ITS ---
PROCEDURE: MR LUMBAR SPINE WO CON INDICATIONS: further eval findings on 11/21/22 CT concerning for TECHNIQUE: Noncontrast sagittal T1 spin echo and T2 fast echo, sagittal STIR, and T2 fast spin echo through the lumbar spine. In cases with scoliosis, additional coronal T2 fast spin echo may be performed. COMPARISON: [facility], , L-SPINE WITHOUT CONTRAST, 02/03/2016, 14:49. FINDINGS: Image quality: Excellent. Alignment and Curvature: There is normal bony alignment. Bone Marrow: Marrow is of normal overall signal. No acute vertebral body compression fractures. Spinal Cord: Conus medullaris terminates at the L1-L2 level. Visualized cord demonstrates normal signal and size. Paraspinous Soft Tissues: No paravertebral masses. T12-L1: No canal stenosis or foraminal stenosis. L1-L2: Bilateral facet hypertrophy with interval progression on the right. No significant canal stenosis or foraminal stenosis. L2-L3: Stable findings. Facet hypertrophy. No canal stenosis. Mild bilateral foraminal stenosis. L3-L4: Mild progression. Diffuse disc bulge with mild superimposed central posterior disc protrusion. Epidural lipomatosis. Facet hypertrophy. Moderate canal stenosis. Central canal findings are stable. There is interval progression of left foraminal narrowing, moderate to severe, with mild impingement on the exiting left L3 nerve root. Moderate right foraminal narrowing is stable. L4-L5: Central canal findings are stable. Broad-based right paracentral disc protrusion results in moderate canal stenosis and severe right lateral recess stenosis. There is moderate right foraminal narrowing. Bilateral facet hypertrophy. There is progression of left foraminal narrowing which is moderate to severe with a degree of left foraminal L4 nerve root impingement. L5-S1: Disc bulge. Facet hypertrophy. No canal stenosis or significant foraminal stenosis. IMPRESSION: On period there is multilevel underlying facet arthropathy. 2. Stable multilevel canal stenosis. It is moderate at L3-L4. At L4-L5 there is moderate central canal stenosis and severe right lateral recess stenosis. 3. Multilevel foraminal narrowing as described above. Findings include progressive, moderate to severe left foraminal narrowing at L3-L4 and L4-L5. Dictated by: Justin Abraham M.D. on 12/05/2022 at 8:57 Approved by: Justin Abraham M.D. on 12/05/2022 at 9:04
[2022-12-03 11:34] LABS: Erythrocyte Sedimentation Rate 2 MM/HR (0-15)
[2022-12-03 11:49] LABS: C-Reactive Protein Quant 0.6 mg/dL (<1.0)
[2022-12-12 15:47] LABS: HLA B27 Negative (.)
== END ==
PROVIDERS: Family Provider Family Medicine; PCP Registered Nurse Diabetes Educator; Referring Provider Registered Nurse Diabetes Educator; Visit Provider Registered Nurse Diabetes Educator
DX: M47.816 Spondylosis without myelopathy or radiculopathy, lumbar region (principal); M47.817 Spondylosis without myelopathy or radiculopathy, lumbosacral region; M48.061 Spinal stenosis, lumbar region without neurogenic claudication; R93.7 Abnormal findings on diagnostic imaging of other parts of musculoskeletal system; M54.41 Lumbago with sciatica, right side; M99.83 Other biomechanical lesions of lumbar region; G89.29 Other chronic pain
CPT/HCPCS: 36415; 72148; 81374; 85651; 86140

== ENCOUNTER → 2023-01-16 16:42 | Outpatient (CLI) | payer OTHER, SELFPAY ==
--- NOTE | 2023-01-16 16:46 | DI.RAD.S_ITS ---
PROCEDURE: XR LUMBAR SPINE MIN 4V INDICATIONS: low back pain TECHNIQUE: 5 views of the lumbar spine were acquired, including bilateral oblique views. COMPARISON: None. FINDINGS: Bones: 5 nonrib-bearing vertebrae are present. There is normal bony alignment. There is multilevel facet arthropathy, worse at L4-5 and L5-S1. Mild multilevel disc height loss with degenerative endplate changes and spurring is present. No vertebral body compression fractures. No suspicious bony lesions. Soft tissues: Overlying bowel gas pattern is normal. No suspicious soft tissue calcifications. Atherosclerotic vascular calcifications. Oblique images: No pars defects. IMPRESSION: Multilevel degenerative changes of the lumbar spine. Dictated by: Eric Grande M.D. on 01/17/2023 at 10:05 Approved by: Eric Grande M.D. on 01/17/2023 at 10:06
== END ==
PROVIDERS: Family Provider Family Medicine; PCP Registered Nurse Diabetes Educator; Referring Provider Registered Nurse Diabetes Educator; Visit Provider Registered Nurse Diabetes Educator
DX: M54.41 Lumbago with sciatica, right side (principal); M47.816 Spondylosis without myelopathy or radiculopathy, lumbar region; M47.817 Spondylosis without myelopathy or radiculopathy, lumbosacral region; G89.29 Other chronic pain
CPT/HCPCS: 72110

== ENCOUNTER → 2023-10-21 18:16 | Outpatient (CLI) | payer OTHER, SELFPAY ==
[2023-10-21 18:59] LABS: Influenza A - CEPHEID Flu A NEGATIVE (NEGATIVE); Influenza B - CEPHEID Flu B NEGATIVE (NEGATIVE); Respiratory Syncytial Virus Negative (Negative)
[2023-10-21 19:00] LABS: COVID-19 CEPHEID 4-PLEX PCR POSITIVE (Negative)
== END ==
PROVIDERS: Family Provider Family Medicine; PCP Registered Nurse Diabetes Educator; Visit Provider Nurse Practitioner Family
DX: R05.1 Acute cough (principal)
CPT/HCPCS: 0241U

== ENCOUNTER → 2024-08-21 10:13 | Outpatient (CLI) | payer OTHER, SELFPAY ==
[2024-08-21 11:05] LABS: Add Manual Diff / Slide Review NO; Hematocrit 48.4 % (41-53); Hemoglobin 16.5 g/dL (13.5-17.5); Lymphocytes Absolute Auto 2300 /uL (1100-4500); Mean Corpuscular HGB Conc 34.1 % (30-36); Mean Corpuscular Hemoglobin 32.8 PG (26-34); Mean Corpuscular Volume 96.2 fL (80-100); Platelet Count 177 X10^3/uL (150-400)
[2024-08-21 11:07] LABS: Hemoglobin A1C% w Est Avg Glu 5.7 % (4.0-6.0)
[2024-08-21 11:17] LABS: Alanine Aminotransferase 52 IU/L (<50); Albumin 4.3 g/dL (3.5-5.0); Albumin Globulin Ratio 1.3 (1.0-2.8); Alkaline Phosphatase 64 U/L (38-126); Blood Urea Nitrogen 15 mg/dL (9-20); Calcium 9.2 mg/dL (8.4-10.2); Carbon Dioxide 27 mmol/L (22-32); Chloride 104 mmol/L (98-107); Estimated Glomerular Filt Rate > 60 mL/min (>60); Globulin 3.3 g/dL (1.7-4.1); Glucose 94 mg/dL (70-99); HEMOLYSIS < 15 (0-50); Potassium 4.5 mmol/L (3.4-5.1); Sodium 139 mmol/L (137-145); Total Protein 7.6 g/dL (6.3-8.2)
== END ==
PROVIDERS: Family Provider Family Medicine; PCP Registered Nurse Diabetes Educator; Referring Provider Physician Assistant; Visit Provider Physician Assistant
DX: R73.01 Impaired fasting glucose (principal); R10.11 Right upper quadrant pain; R50.9 Fever, unspecified; N28.1 Cyst of kidney, acquired
CPT/HCPCS: 36415; 80053; 83036; 85025

== ENCOUNTER → 2024-08-30 06:38 | Outpatient (CLI) | payer OTHER, SELFPAY ==
--- NOTE | 2024-08-30 06:39 | DI.US.S_ITS ---
PROCEDURE: US RENAL COMPLETE INDICATIONS: RUQ pain - hx of multiple cysts R kidney TECHNIQUE: Real-time scanning was performed of the kidneys and bladder, with image documentation. COMPARISON: [facility], , RENAL COMPLETE, 05/24/2022, 11:48. FINDINGS: Kidneys: Kidneys are normal in size. Right kidney measures 14.3 cm long; left kidney measures 13.5 cm long. Right renal cortical thickness is 2.3 cm; left renal cortical thickness is 1.8 cm. Renal cortical echotexture is normal. No hydronephrosis or nephrolithiasis. 4.5 cm right renal cyst. Nonobstructing left renal calculus measures 4.4 mm. Bladder: Pre-void bladder volume is 307 mL. Post-void residual is 72 mL. Pre- void images demonstrate no intraluminal masses or stones. On pre-void images, bilateral ureteral jets are noted with color Doppler interrogation. (Of note, ureteral jets may not be detectable in up to 25% of cases due to insufficient differences in specific gravity between ureteral and bladder urine). Miscellaneous: No free pelvic fluid. IMPRESSION: Right renal cyst. No hydronephrosis. Nonobstructing left renal calculus Approved by: Ziggy Abdullahi M.D. on 08/30/2024 at 16:58
== END ==
PROVIDERS: Family Provider Family Medicine; PCP Registered Nurse Diabetes Educator; Referring Provider Physician Assistant; Visit Provider Physician Assistant
DX: N28.1 Cyst of kidney, acquired (principal); N20.0 Calculus of kidney; R10.11 Right upper quadrant pain; R50.9 Fever, unspecified
CPT/HCPCS: 76770

== ENCOUNTER → 2024-10-26 08:58 | Outpatient (CLI) | payer OTHER, SELFPAY ==
--- NOTE | 2024-10-26 08:59 | DI.MRI.S_ITS ---
PROCEDURE: MR LUMBAR SPINE WO CON INDICATIONS: reeval TECHNIQUE: Noncontrast sagittal T1 spin echo and T2 fast echo, sagittal STIR, and T2 fast spin echo through the lumbar spine. In cases with scoliosis, additional coronal T2 fast spin echo may be performed. COMPARISON: [facility], MR, L-SPINE WITHOUT CONTRAST, 02/03/2016, 14:49. [facility], CR, XR LUMBAR SPINE MIN 4V, 09/25/2024, 16:17. [facility], MR, MR LUMBAR SPINE WO CON, 12/03/2022, 9:31. FINDINGS: Image quality: Excellent. Alignment and Curvature: 5 lumbar type vertebral bodies are present by plain film. 2 mm of retrolisthesis of L1 on L2. 3 mm of retrolisthesis of L3 on L4. 7 mm of retrolisthesis of L5 on S1. Bone Marrow: Marrow is of normal overall signal. No acute vertebral body compression fractures. Mild reactive signal throughout the endplates of the lumbar and lower thoracic spine. Spinal Cord: Conus medullaris terminates at the L1-L2 disc space level. Visualized cord demonstrates normal signal and size. Paraspinous Soft Tissues: No paravertebral masses. T12-L1: Moderate disc height loss and desiccation. Mild diffuse disc bulge. Mild bilateral facet and ligamentum flavum hypertrophy. Mild canal stenosis. Mild bilateral foraminal stenosis. No significant change. L1-L2: Mild disc desiccation and diffuse disc bulge. Mild facet and ligamentum flavum hypertrophy. Mild canal stenosis. Moderate bilateral foraminal stenosis. No significant change. L2-L3: Mild facet and ligamentum flavum hypertrophy. Mild epidural lipomatosis. Mild canal stenosis. Moderate bilateral foraminal stenosis. No significant change. L3-L4: Moderate disc desiccation. Moderate diffuse disc bulge with superimposed central protrusion. Mild facet and ligamentum flavum hypertrophy. Mild epidural lipomatosis. Moderate canal stenosis. Moderate right and moderate to severe left foraminal stenosis. Left L3 nerve root compression. No significant change L4-L5: Moderate disc desiccation. Moderate diffuse disc bulge with superimposed central/right paracentral protrusion. Mild facet and ligamentum flavum hypertrophy. Moderate canal stenosis. Right lateral recess stenosis associated with right L5 nerve root compression. Moderate to severe bilateral foraminal stenosis. Bilateral L4 nerve root compression. No significant change L5-S1: Moderate disc height loss and desiccation. Mild diffuse disc bulge. Mild bilateral facet hypertrophy. Mild canal stenosis. Moderate to severe right and moderate left foraminal stenosis. Right L5 nerve root compression. No significant change IMPRESSION: 1. Multilevel degenerative disc and facet disease, as well as ligamentum flavum hypertrophy and epidural lipomatosis. 2. Multilevel canal stenoses, worst at L3-L4 and L4-L5 where there are moderate canal stenosis. 3. Multilevel foraminal stenoses, worst at L3-L4, L4-L5, and L5-S1 where there is associated intraforaminal nerve root compression. 4. Right lateral recess stenosis at L4-L5 associated with right L5 nerve root compression. 5. Recommend correlation with clinical symptoms to ascertain relevance of these findings. Dictated by: Miguel Ángel Webster M.D. on 10/28/2024 at 11:35 Approved by: Miguel Ángel Webster M.D. on 10/28/2024 at 11:40
== END ==
LOC: MRI 08:58
PROVIDERS: PCP Registered Nurse Diabetes Educator; Referring Provider Registered Nurse Diabetes Educator; Visit Provider Registered Nurse Diabetes Educator
DX: M47.26 Other spondylosis with radiculopathy, lumbar region (principal); M47.27 Other spondylosis with radiculopathy, lumbosacral region; M51.16 Intervertebral disc disorders with radiculopathy, lumbar region; M51.17 Intervertebral disc disorders with radiculopathy, lumbosacral region; M48.061 Spinal stenosis, lumbar region without neurogenic claudication; M48.07 Spinal stenosis, lumbosacral region; M99.83 Other biomechanical lesions of lumbar region; G89.29 Other chronic pain
CPT/HCPCS: 72148

== ENCOUNTER → 2025-01-06 07:12 | Outpatient (CLI) | payer OTHER, SELFPAY ==
--- NOTE | 2025-01-06 07:13 | DI.US.S_ITS ---
PROCEDURE: US ABDOMEN COMPLETE INDICATIONS: ELEVATED LFTS/GB SLUDGE/GASTRITIS/CONSTIPATION TECHNIQUE: Real-time scanning was performed of the abdominal and retroperitoneal organs, with image documentation. COMPARISON: [facility], , US ABDOMEN LIMITED, 04/13/2020, 7:19. FINDINGS: Liver: Size is 17.3 centimeter in sagittal dimension. Diffusely increased echogenicity. No discrete lesion identified. Gallbladder: Unremarkable. Biliary ducts: Intrahepatic bile ducts are non-dilated. Extrahepatic bile duct caliber measures 3.4 mm. Normal is 6-7 mm or less in diameter, or 10 mm or less post-cholecystectomy. Pancreas: Visualized portions of the pancreas are sonographically normal. Spleen measures 12.8 centimeter. Right kidney measures 12.9 centimeter. 4.6 centimeter simple cyst. No hydronephrosis. Left kidney measures 13.2 centimeter. No hydronephrosis. Aorta is normal in caliber. Bilateral common iliacs normal in caliber. IVC patent. Miscellaneous: No free abdominal fluid. IMPRESSION: Diffusely increased hepatic echogenicity most likely hepatic steatosis. Dictated by: Brady Cantrell M.D. on 01/06/2025 at 8:45 Approved by: Brady Cantrell M.D. on 01/06/2025 at 8:50
== END ==
LOC: US 07:12
PROVIDERS: PCP Registered Nurse Diabetes Educator; Referring Provider Registered Nurse Diabetes Educator; Visit Provider Physician Assistant
DX: K82.8 Other specified diseases of gallbladder (principal); N28.1 Cyst of kidney, acquired; R10.11 Right upper quadrant pain; K21.9 Gastro-esophageal reflux disease without esophagitis; K59.00 Constipation, unspecified; K44.9 Diaphragmatic hernia without obstruction or gangrene; K29.90 Gastroduodenitis, unspecified, without bleeding; G89.29 Other chronic pain; Z86.0101 Personal history of adenomatous and serrated colon polyps
CPT/HCPCS: 76700